=== PATIENT | female | born 1945 | race Caucasian/White ===

== ENCOUNTER 2021-08-11 12:04 | Emergency (ER) | payer OTHER ==
[~2021-08-11 12:04] MED LIST: AMBIEN10 MG PO; CALCIUM600 MG PO; ELIQUIS 5 MG TAB5 MG PO; LASIX20 MG PO; METOPROLOL SUCC25 MG PO; RANITIDINE HCL300 MG PO; THERAGRAN M TAB1 EA PO
[2021-08-11] MEDS ORDERED: PERCOCET 5/325 T1 EA PO (14:23)
== END 2021-08-11 14:30 | disposition home or self-care (01) ==
LOC: ER1 12:04
DX: S52.502A Unspecified fracture of the lower end of left radius, initial encounter for closed fracture (principal); Z88.0 Allergy status to penicillin; W20.8XXA Other cause of strike by thrown, projected or falling object, initial encounter; Y92.009 Unspecified place in unspecified non-institutional (private) residence as the place of occurrence of the external cause
CPT/HCPCS: 29125; 73110; 99283

== ENCOUNTER → 2021-11-16 | Outpatient (CLI) | payer OTHER ==
[~2021-11-16] VITALS: Ht 157.5 cm; Wt 71.2 kg
[~2021-11-16] MED LIST changes: +PERCOCET 5/325 T1 EA PO
== END ==
LOC: OPSV 13:00
DX: M81.0 Age-related osteoporosis without current pathological fracture (principal)
CPT/HCPCS: 96365; J3489